=== PATIENT | female | born 1980 | race Caucasian/White ===

== ENCOUNTER → 2016-10-05 | Outpatient (CLI) | payer BC ==
[2016-10-05 14:47] VITALS: BP 106/69
== END ==
LOC: MHUC 14:16
PROVIDERS: ATTEND Physician Assistant
DX: N30.01 Acute cystitis with hematuria (principal)
CPT/HCPCS: 81002; 99213

== ENCOUNTER → 2016-12-23 | Outpatient (CLI) | payer BC ==
[~2016-12-23] MED LIST: AMOX875T2 PO; LIDOVISC MT; METH4TAB27 PO; SULF-221 PO
[2016-12-23 12:02] VITALS: BP 119/78
--- NOTE | 2016-12-23 12:02 | Urgent Care T Sheet Gen (E) ---
Intake General Temperature (Fahrenheit): 99.1 Pulse: 104 Blood Pressure Systolic: 119 Blood Pressure Diastolic: 78 Respirations: 18 SPO2: 98 Description of Symptoms Patient presents with illness since Sunday. Notes ST, malaise, low grade fever up to 100, nasal congestion and ear pain. Been taking Tylenol, Motrin, DayQuil or NyQuil, Sudafed and Flonase. No relief. Patient is concerned she has strep. History of Present Illness Allergies: Coded Allergies: No Known Drug Allergies (Unverified , 11/24/15) Home Meds Active Scripts Sulfamethoxazole/Trimethoprim (Sulfamethoxazole/Trimethoprim DS 800mg/160mg)1 Each Tablet1 Each PO BID #14 TAB Prov:SIMEON WHITING 10/05/16 Lidocaine HCl (Xylocaine 2% Viscous)100 Ml Soln5 Ml MT Q2H W/A PRN SORE THROAT # 1 BTL Gargle and spit 5ml po q 2 hrs prn sore throat Prov:SIMEON WHITING 08/14/16 Methylprednisolone (Medrol Dosepack)21 Tab/Pkt Tablet6 Tab PO DAILY Inflammation #1 PKT Ref 0 Take 6 tabs po on day 1 then decrease by 1 tab daily until packet is gone. Prov:SIMEON WHITING 08/14/16 Amoxicillin 875 Mg [id number] Mg PO BID #20 TAB Ref 0 Prov:RINA ZAVALA APRN () 11/24/15 Respiratory Constitutional Symptoms: Fever Malaise EENTM: Nose Congestion Throat pain Respiratory: Cough (very mild) Cardiovascular: No symptoms reported Gastrointestinal/Abdominal: No symptoms reported All Other Systems Reviewed Remaining Systems: All other systems reviewed with negative findings Past [id number]-Ykaomn Hx Patient's Social History Alcohol Use: Denies Use Surgeries/Hospitalizations Hospitalization/Surgery Hx: healthy Physical Exam Physical Exam General Appearance: WD/WN No apparent distress Eyes, Ears, Nose, Throat Ex: TMs normal Pharyngeal erythema (cobblestone appearance) Other (red, swollen nasal turbinates with clear, thick congestion.) Neck Exam: Supple Lymphadenopathy Respiratory Exam: Lungs clear Normal breath sounds Cardiovascular Exam: Regular rate, rhythm Progress/Orders Lab Results Labs Results: Rapid Strep (negative) Departure Urgent Care Impression Impression: Primary Impression: URI (upper respiratory infection) Qualified Code: J00 - Acute nasopharyngitis [common cold] Departure Disposition: HOME OR SELF-CARE Condition: Stable Referrals: Trip Mckeon (PCP) Additional Instructions: Rapid strep was negative therefore will treat symptomatically Rest. Fluids Medrol dose pack for inflammation/swelling. No NSAIDs while on steroid. DC Sudafed. May take DayQuil or NyQuil as needed. Continue with Flonase. If no better after taking steroid, may start Zpak which I sent home. Return as needed Patient understands DC instructions. All questions were answered. Scripts Methylprednisolone (Medrol Dosepack)21 Tab/Pkt Tablet6 Tab PO DAILY Inflammation #1 PKT Ref 0 6 tabs po on day 1 then decrease by 1 tab daily until packet is gone Prov:SIMEON WHITING 12/23/16 End of report . SIMEON WHITING December 23, 2016 12:02
== END ==
LOC: MHUC 11:41
PROVIDERS: ATTEND Physician Assistant
DX: J00 Acute nasopharyngitis [common cold] (principal)
CPT/HCPCS: 87880; 99213